=== PATIENT | male | born 1940 | race Caucasian/White ===

== ENCOUNTER → 2017-02-11 | Outpatient (CLI) | payer MEDICARE, OTHER ==
[~2017-02-11] MED LIST: FLOM5CAP PO; LANS30CA PO; MECL-68 PO; MELO7.5T7 PO; METF500T13 PO; ROSU10TA2 PO; TRAZ50TA11 PO; VALS1TAB46 PO
--- NOTE | 2017-02-11 10:29 | REP ---
Clinical: Primary Hypertension . Comparison: 11/28/2015 . Technique: PA and lateral. Findings: The mediastinum and cardiac silhouette are normal. The lung childress are clear and without acute consolidation, effusion, or pneumothorax. The skeletal structures are intact and normal. Impression: 1. No acute cardiopulmonary process. Signed by Adalberto Jacob MD 02/11/2017 10:20 A
[2017-02-11 10:44] LABS: MEAN CORPUSCULAR HEMOGLOBIN 34.3 pg (27.0-33.0); MEAN CORPUSCULAR HGB CONC 34.8 g/dl (32.0-36.5); MEAN CORPUSCULAR VOLUME 98.7 fl (80.0-96.0); RED CELL DISTRIBUTION WIDTH 12.8 % (11.5-14.5); WHITE BLOOD COUNT 6.6 K/mm3 (4.0-10.0)
[2017-02-11 11:21] LABS: ALBUMIN 3.8 GM/DL (3.2-5.2); ALBUMIN/GLOBULIN RATIO 1.19 (1.00-1.93); ALKALINE PHOSPHATASE 80 U/L (45-117); ALT/SGPT 28 U/L (12-78); ANION GAP 6 MEQ/L (8-16); AST/SGOT 19 U/L (15-37); BILIRUBIN,TOTAL 0.8 MG/DL (0.2-1.0); BLOOD UREA NITROGEN 20 MG/DL (7-18); CALCIUM LEVEL 8.9 MG/DL (8.8-10.2); CARBON DIOXIDE LEVEL 30 MEQ/L (21-32); CHLORIDE LEVEL 105 MEQ/L (98-107); CHOLESTEROL LEVEL 144 MG/DL (<200); CREATININE FOR GFR 0.96 MG/DL (0.70-1.30); GLOMERULAR FILTRATION RATE > 60.0 (>42); GLUCOSE, FASTING 163 MG/DL (83-110); SODIUM LEVEL 141 MEQ/L (136-145); TRIGLYCERIDES LEVEL 125 MG/DL (<150)
--- NOTE | 2017-02-11 12:01 | ECGEPIP ---
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
== END ==
LOC: M LAB 09:35
PROVIDERS: ATTEND Family Medicine
DX: E11.9 Type 2 diabetes mellitus without complications (principal); I10 Essential (primary) hypertension; R94.31 Abnormal electrocardiogram [ECG] [EKG]

== ENCOUNTER 2017-03-11 10:50 | Outpatient (CLI) | payer MEDICARE, OTHER ==
[~2017-03-11] VITALS: Ht 172.7 cm; Wt 98.0 kg
[~2017-03-11 10:50] MED LIST changes: +NS 1,000 ML IV ONE; +PROPOFOL 200 MG/20 ML VIAL As Ordered ONE
--- NOTE | 2017-03-11 12:21 | ROOR ---
Patient Name: Bryant Jenkins Procedure Date: 03/11/2017 11:51 AM Date of : 1940 Age: 76 Room[facility] Gender: Male Note Status: Finalized Procedure: Total Colonoscopy to Cecum + Cold Snare Polypectomy + Biopsies Indications: Screening for colorectal malignant neoplasm, Last colonoscopy: 2007 Providers: Geovany Bryant MD Referring MD: SHI MEDINA MD Requesting Provider: Medicines: Monitored Anesthesia Care Complications: No immediate complications. Procedure: Pre-Anesthesia Assessment: - The heart rate, respiratory rate, oxygen saturations, blood pressure, adequacy of pulmonary ventilation, and response to care were monitored throughout the procedure. The Colonoscope was introduced through the anus and advanced to the cecum, identified by appendiceal orifice and ileocecal valve. The colonoscopy was performed without difficulty. The patient tolerated the procedure well. The quality of the bowel preparation was excellent. Findings: The perianal and digital rectal examinations were normal. Non-bleeding internal hemorrhoids were found during retroflexion. The hemorrhoids were small and Grade I (internal hemorrhoids that do not prolapse). Scattered small and large-mouthed diverticula were found in the recto-sigmoid colon, sigmoid colon and descending colon. A medium polyp was found in the mid ascending colon. The polyp was sessile. The polyp was removed with a cold snare. Resection and retrieval were complete. A localized area of mildly erythematous mucosa was found appendiceal orifice. Biopsies were taken with a cold forceps for histology. The exam was otherwise without abnormality on direct and retroflexion views. Impression: - Non-bleeding internal hemorrhoids. - Diverticulosis in the recto-sigmoid colon, in the sigmoid colon and in the descending colon. - One medium polyp in the mid ascending colon, removed with a cold snare. Resected and retrieved. - Erythematous mucosa at the appendiceal orifice. Biopsied. - The examination was otherwise normal on direct and retroflexion views. - The exam was otherwise normal to the cecum. Recommendation: - Patient has a contact number available for emergencies. The signs and symptoms of potential delayed complications were discussed with the patient. Return to normal activities tomorrow. Written discharge instructions were provided to the patient. - High fiber diet. - Discharge patient to home. - Continue present medications. - Await pathology results. - Telephone GI clinic for pathology results in 1 week. - Repeat colonoscopy for symptoms only. - Check Portal Online for Path Results.([email or web address] - The findings and recommendations were discussed with the patient's family. Geovany Bryant MD Geovany Bryant MD 03/11/2017 12:21:14 PM This report has been signed electronically. Number of Addenda: 0 Note Initiated On: 03/11/2017 11:51 AM Estimated Blood Loss: Estimated blood loss: none.
[2017-03-11 12:23] VITALS: BP 102/65
== END 2017-03-11 12:50 | disposition home or self-care (01) ==
LOC: M OPP 10:50
PROVIDERS: ATTEND Internal Medicine Gastroenterology
DX: Z12.11 Encounter for screening for malignant neoplasm of colon (principal); K64.0 First degree hemorrhoids; K57.30 Diverticulosis of large intestine without perforation or abscess without bleeding; D12.2 Benign neoplasm of ascending colon; K63.89 Other specified diseases of intestine; I10 Essential (primary) hypertension; E78.00 Pure hypercholesterolemia, unspecified; E11.9 Type 2 diabetes mellitus without complications; K21.9 Gastro-esophageal reflux disease without esophagitis; R06.83 Snoring; N40.0 Benign prostatic hyperplasia without lower urinary tract symptoms; Z87.891 Personal history of nicotine dependence; Z79.899 Other long term (current) drug therapy; Z79.84 Long term (current) use of oral hypoglycemic drugs

== ENCOUNTER → 2017-04-20 | Outpatient (REF) | payer MEDICARE, OTHER ==
[~2017-04-20] MED LIST changes: -NS 1,000 ML IV ONE; -PROPOFOL 200 MG/20 ML VIAL As Ordered ONE
[2017-04-22 00:06] LABS: Lyme Disease IgG/IgM Antibodie <0.91 ISR (0.00-0.90); Lyme Disease IgM Ab Quantitati <0.80 index (0.00-0.79)
== END ==
LOC: M LABDRWAD 12:13
PROVIDERS: ATTEND Physician Assistant
DX: S80.861D Insect bite (nonvenomous), right lower leg, subsequent encounter (principal); X58.XXXD Exposure to other specified factors, subsequent encounter; Y92.89 Other specified places as the place of occurrence of the external cause; Y93.89 Activity, other specified; Y99.8 Other external cause status

== ENCOUNTER → 2017-12-16 | Outpatient (CLI) | payer MEDICARE, OTHER ==
[2017-12-16 09:31] LABS: HEMATOCRIT 43.8 % (42.0-52.0); HEMOGLOBIN 14.9 g/dl (13.5-17.5); MEAN CORPUSCULAR HEMOGLOBIN 32.8 pg (27.0-33.0); MEAN CORPUSCULAR VOLUME 96.5 fl (80.0-96.0); PLATELET COUNT, AUTOMATED 219 10^3/uL (150-450); RED BLOOD COUNT 4.54 10^6/uL (4.30-6.10); RED CELL DISTRIBUTION WIDTH 13.8 % (11.5-14.5); WHITE BLOOD COUNT 7.1 10^3/uL (4.0-10.0)
[2017-12-16 09:41] LABS: PROTHROMBIN TIME 13.3 SECONDS (12.4-14.5)
[2017-12-16 10:13] LABS: ALBUMIN 3.8 GM/DL (3.2-5.2); ALBUMIN/GLOBULIN RATIO 1.27 (1.00-1.93); ALKALINE PHOSPHATASE 75 U/L (45-117); ALT/SGPT 27 U/L (12-78); ANION GAP 5 MEQ/L (8-16); AST/SGOT 15 U/L (7-37); BILIRUBIN,TOTAL 0.6 MG/DL (0.2-1.0); BLOOD UREA NITROGEN 20 MG/DL (7-18); CALCIUM LEVEL 8.5 MG/DL (8.8-10.2); CARBON DIOXIDE LEVEL 29 MEQ/L (21-32); CHLORIDE LEVEL 108 MEQ/L (98-107); CHOLESTEROL LEVEL 125 MG/DL (<200); CHOLESTEROL RISK RATIO 3.289 (<5); CREATININE FOR GFR 0.92 MG/DL (0.70-1.30); GLOMERULAR FILTRATION RATE > 60.0 (>42); GLUCOSE, FASTING 155 MG/DL (70-100); HDL CHOLESTEROL 38 MG/DL (>40); LDL CHOLESTEROL 72.6 MG/DL (<100); NON-HDL-C 87 MG/DL; POTASSIUM SERUM 4.4 MEQ/L (3.5-5.1); PROSTATIC SPECIFIC AG MONITOR 1.21 NG/ML (< 4.0); SODIUM LEVEL 142 MEQ/L (136-145); TOTAL PROTEIN 6.8 GM/DL (6.4-8.2); TRIGLYCERIDES LEVEL 72 MG/DL (<150)
[2017-12-16 10:53] LABS: ESTIMATED AVERAGE GLUCOSE 174 MG/DL (60-110); HEMOGLOBIN A1c 7.7 %
== END ==
LOC: M LAB 08:49
DX: I10 Essential (primary) hypertension (principal); E03.9 Hypothyroidism, unspecified; N40.0 Benign prostatic hyperplasia without lower urinary tract symptoms; R53.83 Other fatigue
CPT/HCPCS: 71046

== ENCOUNTER → 2018-10-28 | Outpatient (CLI) | payer MEDICARE, OTHER ==
[~2018-10-28] MED LIST changes: +FLOM0.4C39 PO; -FLOM5CAP PO; -ROSU10TA2 PO; +ROSU10TA5 PO; +TRAZ-160 PO; -TRAZ50TA11 PO
[2018-10-28 09:38] LABS: HEMATOCRIT 46.5 % (42.0-52.0); HEMOGLOBIN 15.9 g/dl (13.5-17.5); MEAN CORPUSCULAR HEMOGLOBIN 32.6 pg (27.0-33.0); MEAN CORPUSCULAR HGB CONC 34.2 g/dl (32.0-36.5); MEAN CORPUSCULAR VOLUME 95.5 fl (80.0-96.0); PLATELET COUNT, AUTOMATED 221 10^3/uL (150-450); RED BLOOD COUNT 4.87 10^6/uL (4.30-6.10); WHITE BLOOD COUNT 7.4 10^3/uL (4.0-10.0)
--- NOTE | 2018-10-28 10:07 | REP ---
CHEST, TWO VIEWS: COMPARISON: 12/16/2017 There is no evidence of acute infiltrate or pulmonary edema. The lungs are clear. The heart is normal size. There is calcification of the thoracic aorta. The mediastinal silhouette is unchanged. There are old healed left rib fractures again noted. There are degenerative changes of the spine. IMPRESSION: No active pulmonary disease. Electronically Signed by Yovany Ramon MD 10/28/2018 04:00 P
--- NOTE | 2018-10-28 10:09 | REP ---
LUMBOSACRAL SPINE: Five views of the lumbosacral spine are performed. There is no fracture or dislocation. There is normal lumbar lordosis. There is no spondylolysis or spondylolisthesis. There is moderate diffuse spurring. There is mild disc space narrowing and subchondral sclerosis at all levels except for a moderate degree of disc space narrowing and subchondral sclerosis with a vacuum at L4-5. There is sclerosis and spurring of the posterior facet joints, particularly at L4-5, L5-S1. The posterior elements are intact. There is slight curvature toward the left. IMPRESSION: Moderate degenerative changes as above. Electronically Signed by Yovany Ramon MD 10/28/2018 04:01 P
[2018-10-28 10:10] LABS: ALBUMIN 3.8 GM/DL (3.2-5.2); ALT/SGPT 26 U/L (12-78); BILIRUBIN,TOTAL 0.9 MG/DL (0.2-1.0); BLOOD UREA NITROGEN 19 MG/DL (7-18); CALCIUM LEVEL 8.6 MG/DL (8.8-10.2); CARBON DIOXIDE LEVEL 28 MEQ/L (21-32); CHLORIDE LEVEL 105 MEQ/L (98-107); CHOLESTEROL LEVEL 144 MG/DL (<200); CHOLESTEROL RISK RATIO 4.114 (<5); CREATININE FOR GFR 1.08 MG/DL (0.70-1.30); GLOMERULAR FILTRATION RATE > 60.0 (>42); GLUCOSE, FASTING 167 MG/DL (70-100); HDL CHOLESTEROL 35 MG/DL (>40); LDL CHOLESTEROL 89 MG/DL (<100); NON-HDL-C 109 MG/DL; POTASSIUM SERUM 4.2 MEQ/L (3.5-5.1); PROSTATIC SPECIFIC AG MONITOR 0.79 NG/ML (< 4.00); SODIUM LEVEL 140 MEQ/L (136-145); TOTAL PROTEIN 6.8 GM/DL (6.4-8.2); TRIGLYCERIDES LEVEL 102 MG/DL (<150)
[2018-10-28 11:20] LABS: HEMOGLOBIN A1c 8.3 %
--- NOTE | 2018-10-29 23:58 | ECGEPIP ---
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
== END ==
LOC: M LAB 08:47
PROVIDERS: ATTEND Family Medicine
DX: I10 Essential (primary) hypertension (principal); E11.9 Type 2 diabetes mellitus without complications; M54.30 Sciatica, unspecified side; M51.37 Other intervertebral disc degeneration, lumbosacral region

== ENCOUNTER → 2019-01-06 | Outpatient (CLI) | payer MEDICARE, OTHER ==
[~2019-01-06] MED LIST changes: -TRAZ-160 PO; +TRAZ-252 PO; -VALS1TAB46 PO; +VALS1TAB66 PO
--- NOTE | 2019-01-06 15:07 | REP ---
LEFT SHOULDER, THREE VIEWS: HISTORY: Fall. There is no acute fracture or dislocation. There joint spaces are normal in appearance. Osteophytes are present at the acromioclavicular joint. There is an old fracture of the left 7th rib. IMPRESSION: There is no acute fracture or dislocation. Electronically Signed by Rafi Gomez MD 01/06/2019 03:27 P
--- NOTE | 2019-01-06 15:08 | REP ---
LEFT HUMERUS, TWO VIEWS: HISTORY: Fall. There is no acute fracture or dislocation. The joint spaces are normal in appearance. Osteophytes are present at the acromioclavicular joint. IMPRESSION: There is no acute fracture or dislocation. Electronically Signed by Rafi Gomez MD 01/06/2019 03:26 P
== END ==
LOC: M RAD 10:37
PROVIDERS: ATTEND Family Medicine
DX: M25.512 Pain in left shoulder (principal); W19.XXXA Unspecified fall, initial encounter; Y92.009 Unspecified place in unspecified non-institutional (private) residence as the place of occurrence of the external cause; Y93.9 Activity, unspecified

== ENCOUNTER → 2020-07-25 | Outpatient (CLI) | payer MEDICARE, OTHER ==
[~2020-07-25] MED LIST changes: -MECL-68 PO; +MECL1TAB31 PO; -ROSU10TA5 PO; +ROSU10TA6 PO
--- NOTE | 2020-07-25 10:28 | REP ---
INDICATION: RIGHT SHOULDER PAIN. COMPARISON: None. TECHNIQUE: There are three views. FINDINGS: There is mild acromioclavicular osteoarthritis. The glenohumeral joint is unremarkable. There are no calcifications. There is no fracture or dislocation. There is a subsequent cul cyst superolaterally in the humeral head. IMPRESSION: Acromioclavicular osteoarthritis. Humeral head subcortical cysts superolaterally. <Electronically signed by Yovany Rolle > 07/25/20 [id number]
== END ==
LOC: M RAD 09:23
PROVIDERS: ATTEND Family Medicine
DX: M19.011 Primary osteoarthritis, right shoulder (principal); M85.421 Solitary bone cyst, right humerus

== ENCOUNTER → 2020-08-29 | Outpatient (CLI) | payer MEDICARE, OTHER ==
--- NOTE | 2020-08-29 11:57 | REP ---
INDICATION: DDD, SCIATICA. COMPARISON: Comparison study October 28, 2018.. TECHNIQUE: Five views. FINDINGS: There are surgical clips in the right upper quadrant of the abdomen. There is a levoconvex curvature in the lumbar spine on the AP radiograph similar to the prior study. Psoas margins are symmetric. Sacrum and SI joints are intact. Lumbar vertebral body heights are preserved. Alignment is otherwise normal. There is degenerative disc narrowing and osteophyte formation with endplate sclerosis at L4-5. Less prominent degenerative disc changes are noted at L3-4 and L2-3. Discogenic spurring is seen at each visualized level to some degree. Vascular calcification is noted in a normal caliber aorta. There is osteoarthritic facet sclerosis and hypertrophy bilaterally at L5-S1, L4-5, and L3-4. This is more pronounced on the right than the left. Degenerative spondylosis changes are stable when compared with the prior study. IMPRESSION: Degenerative disc and osteoarthritic facet disease. Scoliosis. Findings felt to be unchanged from October 28, 2018. No acute abnormality. <Electronically signed by Ayan Rice > 08/29/20 [id number]
== END ==
LOC: M RAD 10:50
PROVIDERS: ATTEND Family Medicine
DX: M54.30 Sciatica, unspecified side (principal); M25.78 Osteophyte, vertebrae; M51.36 Other intervertebral disc degeneration, lumbar region; M51.37 Other intervertebral disc degeneration, lumbosacral region

== ENCOUNTER → 2021-04-10 | Outpatient (CLI) | payer MEDICARE, OTHER ==
[2021-04-10 09:55] LABS: HEMATOCRIT 39.9 % (42.0-52.0); HEMOGLOBIN 13.6 g/dl (13.5-17.5); MEAN CORPUSCULAR HEMOGLOBIN 33.4 pg (27.0-33.0); MEAN CORPUSCULAR HGB CONC 34.1 g/dl (32.0-36.5); PLATELET COUNT, AUTOMATED 189 10^3/uL (150-450); RED BLOOD COUNT 4.07 10^6/uL (4.30-6.10); WHITE BLOOD COUNT 5.4 10^3/uL (4.0-10.0)
[2021-04-10 10:07] LABS: INR 1.09; PROTHROMBIN TIME 14.5 SECONDS (12.7-14.5)
[2021-04-10 10:19] LABS: ALBUMIN 3.6 GM/DL (3.2-5.2); ALT/SGPT 35 U/L (12-78); BILIRUBIN,TOTAL 0.6 MG/DL (0.2-1.0); BLOOD UREA NITROGEN 21 MG/DL (7-18); CALCIUM LEVEL 9.1 MG/DL (8.8-10.2); CARBON DIOXIDE LEVEL 27 MEQ/L (21-32); CHLORIDE LEVEL 110 MEQ/L (98-107); CREATININE FOR GFR 0.82 MG/DL (0.70-1.30); GLOMERULAR FILTRATION RATE > 60.0 (>35); GLUCOSE, FASTING 106 MG/DL (70-100); POTASSIUM SERUM 4.3 MEQ/L (3.5-5.1); SODIUM LEVEL 141 MEQ/L (136-145); TOTAL PROTEIN 6.6 GM/DL (6.4-8.2)
[2021-04-10 10:33] LABS: ERYTHROCYTE SEDIMENTATION RATE 10 mm/hr (0-20)
--- NOTE | 2021-04-10 17:53 | REP ---
INDICATION: LEFT HIP OSTEOARTHRITIS/LAB FIRST-EKG 2ND-XRAY 3RD COMPARISON: 10/28/2018. TECHNIQUE: PA/Lateral FINDINGS: Lungs: Clear, no infiltrate. Heart: Normal in size. Mediastinum: Mediastinal silhouette unremarkable. There is atherosclerotic plaquing of the thoracic aorta. Pleural angles: Unremarkable.. Bones and soft tissues: There are old healed left rib fractures again noted. There are degenerative changes of the spine. IMPRESSION: No acute pulmonary disease. <Electronically signed by Yovany Ramon > 04/10/21 [id number]
--- NOTE | 2021-04-11 07:47 | ECGEPIP ---
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
== END ==
LOC: M LAB 09:10
PROVIDERS: ATTEND Orthopaedic Surgery
DX: M16.12 Unilateral primary osteoarthritis, left hip (principal)

== ENCOUNTER → 2021-05-02 | Outpatient (CLI) | payer MEDICARE, OTHER ==
[2021-05-02 13:26] LABS: HEMATOCRIT 35.1 % (42.0-52.0); MEAN CORPUSCULAR HEMOGLOBIN 33.1 pg (27.0-33.0); MEAN CORPUSCULAR HGB CONC 34.2 g/dl (32.0-36.5); PLATELET COUNT, AUTOMATED 287 10^3/uL (150-450); RED BLOOD COUNT 3.62 10^6/uL (4.30-6.10); WHITE BLOOD COUNT 5.3 10^3/uL (4.0-10.0)
[2021-05-02 13:38] LABS: INR 1.58; PROTHROMBIN TIME 19.3 SECONDS (12.7-14.5)
[2021-05-02 14:06] LABS: ALBUMIN 3.1 GM/DL (3.2-5.2); ALT/SGPT 37 U/L (12-78); BILIRUBIN,TOTAL 0.5 MG/DL (0.2-1.0); BLOOD UREA NITROGEN 20 MG/DL (7-18); CALCIUM LEVEL 8.9 MG/DL (8.8-10.2); CARBON DIOXIDE LEVEL 27 MEQ/L (21-32); CHLORIDE LEVEL 103 MEQ/L (98-107); CREATININE FOR GFR 0.82 MG/DL (0.70-1.30); GLOMERULAR FILTRATION RATE > 60.0 (>35); GLUCOSE, FASTING 133 MG/DL (70-100); POTASSIUM SERUM 4.8 MEQ/L (3.5-5.1); PROSTATIC SPECIFIC AG MONITOR 1.22 NG/ML (< 4.00); SODIUM LEVEL 138 MEQ/L (136-145); TESTOSTERONE 140 NG/DL (241-827); TOTAL PROTEIN 6.2 GM/DL (6.4-8.2)
== END ==
LOC: M LAB 12:10
PROVIDERS: ATTEND Family Medicine
DX: I10 Essential (primary) hypertension (principal); R53.83 Other fatigue; D64.9 Anemia, unspecified; Z79.899 Other long term (current) drug therapy

== ENCOUNTER → 2021-11-12 | Outpatient (CLI) | payer MEDICARE, OTHER ==
[2021-11-12 13:03] LABS: PLATELET COUNT, AUTOMATED 243 10^3/uL (150-450)
[2021-11-12 13:08] LABS: INR 1.01; PROTHROMBIN TIME 13.7 SECONDS (12.7-14.5)
[2021-11-12 13:09] LABS: PARTIAL THROMBOPLASTIN TIME 30.7 SECONDS (25.9-37.0)
== END ==
LOC: M LAB 11:24
PROVIDERS: ATTEND Physician Assistant Surgical
DX: M51.37 Other intervertebral disc degeneration, lumbosacral region (principal)

== ENCOUNTER → 2021-12-17 | Outpatient (CLI) | payer MEDICARE, OTHER ==
[2021-12-17 10:23] LABS: HEMATOCRIT 42.3 % (42.0-52.0); HEMOGLOBIN 14.3 g/dl (13.5-17.5); MEAN CORPUSCULAR HEMOGLOBIN 33.7 pg (27.0-33.0); MEAN CORPUSCULAR HGB CONC 33.8 g/dl (32.0-36.5); MEAN CORPUSCULAR VOLUME 99.8 fl (80.0-96.0); PLATELET COUNT, AUTOMATED 234 10^3/uL (150-450); RED BLOOD COUNT 4.24 10^6/uL (4.30-6.10); WHITE BLOOD COUNT 7.6 10^3/uL (4.0-10.0)
[2021-12-17 11:06] LABS: ALBUMIN 3.9 GM/DL (3.2-5.2); ALT/SGPT 18 U/L (12-78); BILIRUBIN,TOTAL 0.7 MG/DL (0.2-1.0); BLOOD UREA NITROGEN 21 MG/DL (7-18); CALCIUM LEVEL 9.4 MG/DL (8.8-10.2); CARBON DIOXIDE LEVEL 27 MEQ/L (21-32); CHLORIDE LEVEL 109 MEQ/L (98-107); CHOLESTEROL LEVEL 155 MG/DL (<200); CHOLESTEROL RISK RATIO 4.558 (<5); CREATININE FOR GFR 1.06 MG/DL (0.70-1.30); GLOMERULAR FILTRATION RATE > 60.0 (>35); GLUCOSE, FASTING 170 MG/DL (70-100); HDL CHOLESTEROL 34 MG/DL (>40); LDL CHOLESTEROL 91 MG/DL (<100); NON-HDL-C 121 MG/DL; POTASSIUM SERUM 5.7 MEQ/L (3.5-5.1); PROSTATIC SPECIFIC AG MONITOR 1.21 NG/ML (< 4.00); SODIUM LEVEL 140 MEQ/L (136-145); TOTAL PROTEIN 7.3 GM/DL (6.4-8.2); TRIGLYCERIDES LEVEL 150 MG/DL (<150)
[2021-12-17 11:39] LABS: HEMOGLOBIN A1c 6.7 %
== END ==
LOC: M LAB 09:05
PROVIDERS: ATTEND Family Medicine
DX: R53.83 Other fatigue (principal); I10 Essential (primary) hypertension; Z79.899 Other long term (current) drug therapy

== ENCOUNTER → 2022-06-18 | Outpatient (CLI) | payer MEDICARE, OTHER ==
[2022-06-18 10:02] LABS: HEMATOCRIT 42.5 % (42.0-52.0); HEMOGLOBIN 14.4 g/dl (13.5-17.5); MEAN CORPUSCULAR HEMOGLOBIN 33.6 pg (27.0-33.0); MEAN CORPUSCULAR HGB CONC 33.9 g/dl (32.0-36.5); MEAN CORPUSCULAR VOLUME 99.1 fl (80.0-96.0); PLATELET COUNT, AUTOMATED 231 10^3/uL (150-450); RED BLOOD COUNT 4.29 10^6/uL (4.30-6.10); WHITE BLOOD COUNT 6.9 10^3/uL (4.0-10.0)
[2022-06-18 10:28] LABS: HEMOGLOBIN A1c 6.7 %
[2022-06-18 10:51] LABS: ALBUMIN 3.9 GM/DL (3.2-5.2); ALT/SGPT 25 U/L (12-78); BILIRUBIN,TOTAL 0.7 MG/DL (0.2-1.0); BLOOD UREA NITROGEN 19 MG/DL (7-18); CALCIUM LEVEL 8.8 MG/DL (8.8-10.2); CARBON DIOXIDE LEVEL 28 MEQ/L (21-32); CHLORIDE LEVEL 105 MEQ/L (98-107); CHOLESTEROL LEVEL 130 MG/DL (<200); CHOLESTEROL RISK RATIO 3.333 (<5); CREATININE FOR GFR 1.01 MG/DL (0.70-1.30); GLOMERULAR FILTRATION RATE > 60.0 (>35); GLUCOSE, FASTING 128 MG/DL (70-100); HDL CHOLESTEROL 39 MG/DL (>40); LDL CHOLESTEROL 71 MG/DL (<100); NON-HDL-C 91 MG/DL; POTASSIUM SERUM 4.7 MEQ/L (3.5-5.1); PROSTATIC SPECIFIC AG MONITOR 1.06 NG/ML (< 4.00); SODIUM LEVEL 141 MEQ/L (136-145); TOTAL PROTEIN 6.9 GM/DL (6.4-8.2); TRIGLYCERIDES LEVEL 102 MG/DL (<150)
[2022-06-18 12:10] LABS: TESTOSTERONE 273 NG/DL (241-827)
== END ==
LOC: M LAB 09:21
PROVIDERS: ATTEND Family Medicine
DX: R53.83 Other fatigue (principal); I10 Essential (primary) hypertension; E03.9 Hypothyroidism, unspecified; Z79.899 Other long term (current) drug therapy

== ENCOUNTER → 2022-10-02 | Outpatient (CLI) | payer MEDICARE, OTHER ==
[2022-10-02 11:12] LABS: HEMATOCRIT 42.5 % (42.0-52.0); HEMOGLOBIN 14.2 g/dl (13.5-17.5); MEAN CORPUSCULAR HEMOGLOBIN 33.4 pg (27.0-33.0); MEAN CORPUSCULAR HGB CONC 33.4 g/dl (32.0-36.5); PLATELET COUNT, AUTOMATED 218 10^3/uL (150-450); RED BLOOD COUNT 4.25 10^6/uL (4.30-6.10); WHITE BLOOD COUNT 7.4 10^3/uL (4.0-10.0)
[2022-10-02 11:30] LABS: HEMOGLOBIN A1c 7.4 % (4.0-6.0)
[2022-10-02 11:45] LABS: PROSTATIC SPECIFIC AG MONITOR 0.71 NG/ML (< 4.00)
[2022-10-02 11:47] LABS: ALKALINE PHOSPHATASE 69 U/L (46-116); ALT/SGPT 20 U/L (7.0-40); AST/SGOT 17 U/L (<34); BILIRUBIN,TOTAL 0.6 MG/DL (0.3-1.2); BLOOD UREA NITROGEN 22 MG/DL (9-23); CALCIUM LEVEL 9.6 MG/DL (8.3-10.6); CARBON DIOXIDE LEVEL 29 MMOL/L (20-31); CHLORIDE LEVEL 106 MMOL/L (98-107); CHOLESTEROL LEVEL 140 MG/DL (<200); CHOLESTEROL RISK RATIO 3.53 (<5); CREATININE FOR GFR 0.92 MG/DL (0.70-1.30); GLOMERULAR FILTRATION RATE > 60.0 (>35); GLUCOSE, FASTING 189 MG/DL (74-106); HDL CHOLESTEROL 39.6 MG/DL (>40); LDL CHOLESTEROL 80.2 MG/DL (<100); NON-HDL-C 100 MG/DL; POTASSIUM SERUM 5.1 MMOL/L (3.5-5.1); SODIUM LEVEL 139 MMOL/L (136-145); TOTAL PROTEIN 6.7 G/DL (5.7-8.2); TRIGLYCERIDES LEVEL 101 MG/DL (<150)
[2022-10-02 11:49] LABS: THYROID STIMULATING HORMONE 1.818 uIU/ML (0.55-4.78)
== END ==
LOC: M LAB 10:13
PROVIDERS: ATTEND Family Medicine
DX: D64.9 Anemia, unspecified (principal); R53.83 Other fatigue; I10 Essential (primary) hypertension; R97.20 Elevated prostate specific antigen [PSA]

== ENCOUNTER → 2023-03-31 | Outpatient (CLI) | payer MEDICARE, OTHER ==
[2023-03-31 10:31] LABS: HEMATOCRIT 41.1 % (42.0-52.0); HEMOGLOBIN 13.8 g/dl (13.5-17.5); MEAN CORPUSCULAR HEMOGLOBIN 33.5 pg (27.0-33.0); MEAN CORPUSCULAR HGB CONC 33.6 g/dl (32.0-36.5); MEAN CORPUSCULAR VOLUME 99.8 fl (80.0-96.0); PLATELET COUNT, AUTOMATED 218 10^3/uL (150-450); RED BLOOD COUNT 4.12 10^6/uL (4.30-6.10); WHITE BLOOD COUNT 6.5 10^3/uL (4.0-10.0)
[2023-03-31 10:47] LABS: HEMOGLOBIN A1c 6.9 % (4.0-6.0)
[2023-03-31 11:01] LABS: ALBUMIN 3.8 G/DL (3.2-5.2); ALKALINE PHOSPHATASE 66 U/L (46-116); ALT/SGPT 13 U/L (7.0-40); AST/SGOT 19 U/L (<34); BILIRUBIN,TOTAL 0.9 MG/DL (0.3-1.2); BLOOD UREA NITROGEN 20 MG/DL (9-23); CALCIUM LEVEL 8.8 MG/DL (8.3-10.6); CARBON DIOXIDE LEVEL 29 MMOL/L (20-31); CHLORIDE LEVEL 104 MMOL/L (98-107); CHOLESTEROL LEVEL 126 MG/DL (<200); CHOLESTEROL RISK RATIO 3.61 (<5); CREATININE FOR GFR 0.92 MG/DL (0.70-1.30); GLOMERULAR FILTRATION RATE > 60.0 (>35); GLUCOSE, FASTING 184 MG/DL (74-106); HDL CHOLESTEROL 34.9 MG/DL (>40); LDL CHOLESTEROL 72.5 MG/DL (<100); NON-HDL-C 91.1 MG/DL; POTASSIUM SERUM 4.9 MMOL/L (3.5-5.1); PROSTATIC SPECIFIC AG MONITOR 0.69 NG/ML (< 4.00); SODIUM LEVEL 141 MMOL/L (136-145); TESTOSTERONE 270 NG/DL (241-827); THYROID STIMULATING HORMONE 1.595 uIU/ML (0.55-4.78); TOTAL PROTEIN 6.5 G/DL (5.7-8.2); TRIGLYCERIDES LEVEL 93 MG/DL (<150)
== END ==
LOC: M LAB 09:44
PROVIDERS: ATTEND Family Medicine
DX: I10 Essential (primary) hypertension (principal); R53.83 Other fatigue; E03.9 Hypothyroidism, unspecified

== ENCOUNTER → 2023-11-25 | Outpatient (CLI) | payer MEDICARE, OTHER ==
[~2023-11-25] MED LIST changes: +LIQUID POLIBAR PLUS 105% w/v 750ML BTL As Ordered ONE; +MECL-209 PO; -MECL1TAB31 PO
== END ==
LOC: M RAD 08:09
PROVIDERS: ATTEND Family Medicine
DX: R19.4 Change in bowel habit (principal)

== ENCOUNTER → 2024-01-29 | Outpatient (CLI) | payer MEDICARE, OTHER ==
[~2024-01-29] MED LIST changes: -LIQUID POLIBAR PLUS 105% w/v 750ML BTL As Ordered ONE; -ROSU10TA6 PO; +ROSU10TA61 PO
== END ==
LOC: M RAD 11:14
PROVIDERS: ATTEND Family Medicine
DX: J44.9 Chronic obstructive pulmonary disease, unspecified (principal)

== ENCOUNTER 2024-02-15 12:10 | Inpatient (IN) | payer MEDICARE, OTHER ==
[~2024-02-15] VITALS: Ht 172.7 cm; Wt 89.6 kg
[2024-02-15] MEDS ORDERED: ASPI81CH33 PO (12:24)
[2024-02-15] MEDS ORDERED: CARB25TA9 PO (12:24)
[2024-02-15] MEDS ORDERED: DOXA1TAB41 PO (12:24)
[2024-02-15] MEDS ORDERED: SENN-193 PO (12:25)
[2024-02-15] MEDS: NS 500 ML IV ONE ×2 (13:23→15:12)
[2024-02-15 13:33] LABS: BASO % 0.2 % (0.0-1.0); EOS % 0.2 % (0.0-3.0); HEMOGLOBIN 13.5 g/dl (13.5-17.5); LYMPH # 0.4 10^3/uL (1.5-5.0); LYMPH % 3.3 % (24.0-44.0); MEAN CORPUSCULAR HEMOGLOBIN 32.9 pg (27.0-33.0); MEAN CORPUSCULAR HGB CONC 33.8 g/dl (32.0-36.5); MEAN CORPUSCULAR VOLUME 97.6 fl (80.0-96.0); MONO # 0.3 10^3/uL (0.0-0.8); MONO % 2.3 % (2.0-8.0); NEUTROPHILS # 11.2 10^3/uL (1.5-8.5); NEUTROPHILS % 93.6 % (36.0-66.0); WHITE BLOOD COUNT 11.9 10^3/uL (4.0-10.0)
[2024-02-15 13:44] LABS: INR 1.46; PROTHROMBIN TIME 17.3 SECONDS (12.5-14.5)
[2024-02-15 13:46] LABS: PLATELET COUNT, AUTOMATED 86 10^3/uL (150-450)
[2024-02-15 14:01] LABS: LIPASE 22 U/L (12-53)
[2024-02-15 14:03] LABS: ALBUMIN 3.5 G/DL (3.2-5.2); ALKALINE PHOSPHATASE 90 U/L (46-116); ALT/SGPT < 9 U/L (7.0-40); AST/SGOT 33 U/L (<34); BILIRUBIN,DIRECT 0.4 MG/DL (<0.4); BILIRUBIN,TOTAL 0.8 MG/DL (0.3-1.2); BLOOD UREA NITROGEN 76 MG/DL (9-23); CALCIUM LEVEL 9.5 MG/DL (8.3-10.6); CARBON DIOXIDE LEVEL 20 MMOL/L (20-31); CHLORIDE LEVEL 99 MMOL/L (98-107); CK-MB VALUE MASS 2.9 NG/ML (<3.6); GLOMERULAR FILTRATION RATE 19.8 (>35); GLUCOSE, FASTING 150 MG/DL (74-106); SODIUM LEVEL 128 MMOL/L (136-145); TOTAL PROTEIN 6.1 G/DL (5.7-8.2)
[2024-02-15 14:04] LABS: THYROID STIMULATING HORMONE 7.024 uIU/ML (0.55-4.78)
[2024-02-15 14:05] LABS: FREE T4 1.21 NG/DL (0.89-1.76)
[2024-02-15 14:06] LABS: CPK CREATINE PHOSPHOKINASE 50 U/L (46-171)
[2024-02-15] MEDS ORDERED: MECL-136 PO (14:50)
[2024-02-15] MEDS ORDERED: MELO7.5T35 PO (14:50)
[2024-02-15] MEDS ORDERED: LANS30CA93 PO (14:52)
[2024-02-15] MEDS ORDERED: OMEP40CA5 PO (14:53)
[2024-02-15] MEDS ORDERED: HOME MED LIST COMPLETE! XX SCH (15:00)
[2024-02-15] MEDS: HumuLIN R (REGULAR) INSULIN (NovoLIN R) **100U/ML** PER UNIT IV ONE (15:13)
[2024-02-15] MEDS: CALCIUM GLUCONATE 1,000 MG in D5W MINI-BAG PLUS 100 ML IV ONE (15:13)
[2024-02-15] MEDS: DEXTROSE 50% 50ML SYRINGE IV STA (15:14)
[2024-02-15 15:40] LABS: CK-MB VALUE MASS 2.5 NG/ML (<3.6)
[2024-02-15 15:41] LABS: MB/CK RELATIVE INDEX 5.43 (< OR =4)
[2024-02-15] MEDS: cefTRIAXone SOD 2 GM in D5W MINI-BAG PLUS 50 ML IV ONE (16:40)
[2024-02-15] MEDS: NS 1,000 ML IV SCH (16:40)
[2024-02-15] MEDS ORDERED: ACETAMINOPHEN TAB 650MG DOSE (2X325MG) PO PRN (17:15)
[2024-02-15] MEDS ORDERED: DEXTROSE 50% 50ML SYRINGE IV PRN (17:40)
[2024-02-15] MEDS ORDERED: GLUCOSE 4 GM CHEW PO PRN (17:40)
[2024-02-15] MEDS ORDERED: GLUCAGON INJ 1MG VIAL SC PRN (17:40)
[2024-02-15 18:42] LABS: BLOOD UREA NITROGEN 75 MG/DL (9-23); CALCIUM LEVEL 8.8 MG/DL (8.3-10.6); CARBON DIOXIDE LEVEL 21 MMOL/L (20-31); CHLORIDE LEVEL 101 MMOL/L (98-107); GLOMERULAR FILTRATION RATE 21.4 (>35); GLUCOSE, FASTING 146 MG/DL (74-106); POTASSIUM SERUM 5.4 MMOL/L (3.5-5.1); SODIUM LEVEL 130 MMOL/L (136-145)
[2024-02-15 18:43] LABS: CARCINOEMBRYONIC ANTIGEN < 2.0 NG/ML (<2.5); THYROID STIMULATING HORMONE 5.358 uIU/ML (0.55-4.78)
[2024-02-15 18:44] LABS: FREE T4 1.14 NG/DL (0.89-1.76)
[2024-02-15 18:55] LABS: PROCALCITONIN 0.63 ng/ml
[2024-02-15 18:59] LABS: CA19-9 TUMOR MARKER,CARBOHYDRA < 1.2 U/ML (<35.0)
[2024-02-15 19:01] LABS: HEPATITIS B SURFACE ANTIGEN NEGATIVE (NEGATIVE)
[2024-02-15 19:22] LABS: HEPATITIS C VIRUS ABY INDEX < 0.02 INDEX (<0.8)
[2024-02-15 19:23] LABS: HEPATITIS B CORE ANTIBODY IGM NEGATIVE (NEGATIVE); VITAMIN B12 LEVEL > 2000 PG/ML (211-911)
[2024-02-15] MEDS: INSULIN LISPRO (NovoLOG) PER UNIT SC SCH (21:00)
[2024-02-15] MEDS: MECLIZINE 12.5 MG TAB PO SCH (21:00)
[2024-02-15] MEDS: DOXAZOSIN MESYLATE 1 MG TAB PO SCH (21:00)
[2024-02-15] MEDS: SINEMET 25-100 MG TAB PO SCH (21:00)
[2024-02-15 21:20] VITALS: BP 105/62; TEMP 98.1; O2SAT 96
[2024-02-16] VITALS (12 sets, daily range): BP systolic 64–106; BP diastolic 42–66; TEMP 96.8–98.3; O2SAT 96–97
[2024-02-16 06:20] LABS: HEMATOCRIT 38.1 % (42.0-52.0); HEMOGLOBIN 12.8 g/dl (13.5-17.5); MEAN CORPUSCULAR HEMOGLOBIN 33.2 pg (27.0-33.0); MEAN CORPUSCULAR HGB CONC 33.6 g/dl (32.0-36.5); MEAN CORPUSCULAR VOLUME 98.7 fl (80.0-96.0); RED BLOOD COUNT 3.86 10^6/uL (4.30-6.10); WHITE BLOOD COUNT 13.6 10^3/uL (4.0-10.0)
[2024-02-16 06:48] LABS: ALBUMIN 2.9 G/DL (3.2-5.2); ALKALINE PHOSPHATASE 72 U/L (46-116); ALT/SGPT < 9 U/L (7.0-40); AST/SGOT 38 U/L (<34); BILIRUBIN,TOTAL 0.5 MG/DL (0.3-1.2); BLOOD UREA NITROGEN 73 MG/DL (9-23); CALCIUM LEVEL 8.9 MG/DL (8.3-10.6); CARBON DIOXIDE LEVEL 19 MMOL/L (20-31); CHLORIDE LEVEL 103 MMOL/L (98-107); CREATININE FOR GFR 2.97 MG/DL (0.70-1.30); GLOMERULAR FILTRATION RATE 21.6 (>35); GLUCOSE, FASTING 105 MG/DL (74-106); POTASSIUM SERUM 5.6 MMOL/L (3.5-5.1); SODIUM LEVEL 133 MMOL/L (136-145); TOTAL PROTEIN 5.1 G/DL (5.7-8.2)
[2024-02-16 06:49] LABS: PLATELET COUNT, AUTOMATED 84 10^3/uL (150-450)
[2024-02-16] MEDS: INSULIN LISPRO (NovoLOG) PER UNIT SC SCH (07:30)
[2024-02-16] MEDS: ASPIRIN 81MG CHEW TABLET PO SCH (09:11)
[2024-02-16] MEDS: PANTOPRAZOLE 40MG VIAL IV SCH (09:11)
[2024-02-16] MEDS: PATIROMER SORBITEX CALCIUM 8.4 GM POWDER PACKET (VELTASSA) PO ONE ×2 (09:11→18:05)
[2024-02-16] MEDS: TAMSULOSIN 0.4 MG CAP PO SCH (09:12)
[2024-02-16] MEDS: SENNA 8.6 MG TAB (SENOKOT) PO PRN (11:30)
[2024-02-16] MEDS: NS 1,000 ML IV ONE (11:50)
[2024-02-16] MEDS: NS 500 ML IV ONE (11:50)
[2024-02-16] MEDS ORDERED: MIDODRINE 5 MG TAB PO SCH ×2 (12:00→12:15)
[2024-02-16] MEDS ORDERED: MIDODRINE 2.5 MG TAB PO SCH ×3 (12:00→18:00)
[2024-02-16] MEDS: MIDODRINE 5 MG TAB PO SCH ×2 (12:17→20:22)
[2024-02-16] MEDS: SODIUM BICARBONATE 75 MEQ in NS 0.45% 1,000 ML IV SCH (14:23)
[2024-02-16 15:01] LABS: TOTAL PROTEIN,RANDOM URINE 85.9 MG/DL (0.0-14.0)
[2024-02-16 15:06] LABS: CREATININE,RANDOM URINE 194.1 MG/DL
[2024-02-16] MEDS: cefTRIAXone SOD 1 GM in D5W MINI-BAG PLUS 50 ML IV ONE (15:39)
[2024-02-16] MEDS: OCTREOTIDE ACETATE 100MCG/ML VIAL **SC ADMINISTRATION ONLY SC SCH (15:39)
[2024-02-16] MEDS: MIDODRINE 2.5 MG TAB PO SCH (15:42)
[2024-02-16 17:09] LABS: CREATININE FOR GFR 3.06 MG/DL (0.70-1.30); GLOMERULAR FILTRATION RATE 20.9 (>35); POTASSIUM SERUM 5.5 MMOL/L (3.5-5.1)
[2024-02-17] VITALS (31 sets, daily range): BP systolic 80–122; BP diastolic 48–63; TEMP 97.2–97.8; O2SAT 92–99
[2024-02-17 04:44] LABS: VENOUS BASE EXCESS -4.9 (-2.0-2.0); VENOUS HCO3 20.3 MMOL/L (23.0-27.0); VENOUS O2 SATURATION 91.1 % (60.0-80.0); VENOUS PARTIAL PRESSURE O2 64.2 mmHg (30.0-50.0); VENOUS PH 7.345 UNITS (7.330-7.430); VENOUS STANDARD HCO3 20.3 MMOL/L; VENOUS TOTAL CO2 21.4 MMOL/L (24.0-28.0)
[2024-02-17 04:51] LABS: BASO % 0.2 % (0.0-1.0); EOS # 0.1 10^3/uL (0.0-0.5); EOS % 0.4 % (0.0-3.0); HEMATOCRIT 37.1 % (42.0-52.0); HEMOGLOBIN 12.7 g/dl (13.5-17.5); LYMPH # 0.6 10^3/uL (1.5-5.0); LYMPH % 4.4 % (24.0-44.0); MEAN CORPUSCULAR HEMOGLOBIN 33.1 pg (27.0-33.0); MEAN CORPUSCULAR HGB CONC 34.2 g/dl (32.0-36.5); MEAN CORPUSCULAR VOLUME 96.6 fl (80.0-96.0); MONO # 0.5 10^3/uL (0.0-0.8); MONO % 3.9 % (2.0-8.0); NEUTROPHILS # 12.5 10^3/uL (1.5-8.5); NEUTROPHILS % 90.8 % (36.0-66.0); RED BLOOD COUNT 3.84 10^6/uL (4.30-6.10); WHITE BLOOD COUNT 13.7 10^3/uL (4.0-10.0)
[2024-02-17 04:53] LABS: PLATELET COUNT, AUTOMATED 95 10^3/uL (150-450)
[2024-02-17 05:14] LABS: CALCIUM LEVEL 8.9 MG/DL (8.3-10.6); CREATININE FOR GFR 2.92 MG/DL (0.70-1.30); GLOMERULAR FILTRATION RATE 22.1 (>35); POTASSIUM SERUM 5.2 MMOL/L (3.5-5.1)
[2024-02-17] MEDS: NICOTINE 21MG/24HR 1 EA TRANSDERMAL TD SCH (09:00)
[2024-02-17 16:16] LABS: APPEARANCE, BODY FLUID TURBID (CLEAR); ASCITES FL COLOR RED (COLORLESS); SOURCE, BODY FLUID ASCITES
[2024-02-17] MEDS: MIDODRINE 5 MG TAB PO ONE (16:39)
[2024-02-17 16:53] LABS: SOURCE, BODY FLUID ALBUMIN ASCITES
[2024-02-17 17:01] LABS: SOURCE, BODY FLUID TOT PROTEIN ASCITES; TOTAL PROTEIN, BODY FLUID 2.3 G/DL (NOT ESTABLISHED)
[2024-02-17] MEDS ORDERED: HEPARIN SOD (PORCINE) 5000UNITS/ML 1ML VIAL/SYRINGE SQ SCH (17:50)
[2024-02-17] MEDS: NOREPINEPHRINE 4MG IN D5 250ML 4 MG in IV 1 EA IV SCH (18:35)
[2024-02-17] MEDS: ONDANSETRON 4MG 2ML VIAL IV PRN (21:17)
[2024-02-17] MEDS: MIDODRINE 5 MG TAB PO SCH (21:18)
[2024-02-18] VITALS (42 sets, daily range): BP systolic 92–121; BP diastolic 53–68; TEMP 97.6–98; O2SAT 95–98
[2024-02-18 06:05] LABS: BASO # 0.1 10^3/uL (0.0-0.2); BASO % 0.2 % (0.0-1.0); HEMATOCRIT 39.7 % (42.0-52.0); HEMOGLOBIN 13.3 g/dl (13.5-17.5); LYMPH # 0.8 10^3/uL (1.5-5.0); LYMPH % 3.6 % (24.0-44.0); MEAN CORPUSCULAR HEMOGLOBIN 32.3 pg (27.0-33.0); MEAN CORPUSCULAR HGB CONC 33.5 g/dl (32.0-36.5); MEAN CORPUSCULAR VOLUME 96.4 fl (80.0-96.0); MONO # 0.6 10^3/uL (0.0-0.8); MONO % 2.8 % (2.0-8.0); NEUTROPHILS % 92.8 % (36.0-66.0); PLATELET COUNT, AUTOMATED 124 10^3/uL (150-450); RED BLOOD COUNT 4.12 10^6/uL (4.30-6.10); WHITE BLOOD COUNT 22.6 10^3/uL (4.0-10.0)
[2024-02-18 06:26] LABS: ALBUMIN 2.7 G/DL (3.2-5.2); ALKALINE PHOSPHATASE 75 U/L (46-116); ALT/SGPT < 9 U/L (7.0-40); AST/SGOT 25 U/L (<34); BILIRUBIN,TOTAL 0.6 MG/DL (0.3-1.2); BLOOD UREA NITROGEN 63 MG/DL (9-23); CALCIUM LEVEL 8.5 MG/DL (8.3-10.6); CARBON DIOXIDE LEVEL 22 MMOL/L (20-31); CHLORIDE LEVEL 98 MMOL/L (98-107); CREATININE FOR GFR 2.88 MG/DL (0.70-1.30); GLOMERULAR FILTRATION RATE 22.4 (>35); GLUCOSE, FASTING 154 MG/DL (74-106); POTASSIUM SERUM 5.1 MMOL/L (3.5-5.1); SODIUM LEVEL 131 MMOL/L (136-145)
[2024-02-18] MEDS: HEPARIN SOD (PORCINE) 5000UNITS/ML 1ML VIAL/SYRINGE SQ SCH (08:42)
[2024-02-18] MEDS: cefTRIAXone SOD 1 GM in D5W MINI-BAG PLUS 50 ML IV SCH (08:42)
[2024-02-18] MEDS: PANTOPRAZOLE 40MG VIAL IV SCH (08:42)
[2024-02-18] MEDS: cefTRIAXone SOD 1 GM in D5W MINI-BAG PLUS 50 ML IV ONE (09:33)
[2024-02-18] MEDS ORDERED: ATROPINE SULFATE 1% OPHTH SOLN 2ML BTL SL PRN (14:45)
[2024-02-18] MEDS ORDERED: LORazepam 1 MG TAB PO PRN (14:45)
[2024-02-18] MEDS: ONDANSETRON 4MG ORAL DISINTEGRATING TAB PO PRN (15:17)
[2024-02-18] MEDS: SCOPOLAMINE 1MG TRANSDERMAL PATCH TOP SCH (16:42)
[2024-02-18] MEDS: MORPHINE 10MG/0.5ML ORAL CONCENTRATE SOLUTION U/D SL PRN (17:48)
[2024-02-18] MEDS: RAMELTEON 8 MG TAB (ROZEREM) PO ONE (21:43)
[2024-02-19] MEDS ORDERED: HYOS125TA PO (08:12)
[2024-02-19] MEDS ORDERED: ATIV1TAB10 PO (08:12)
[2024-02-19] MEDS ORDERED: MORP1SOL5 PO (08:12)
[2024-02-19] MEDS ORDERED: TRAN1DIS4 TOP (08:14)
[2024-02-19] MEDS ORDERED: MIDO5TA PO (08:14)
[2024-02-19] MEDS ORDERED: cefTRIAXone SOD 2 GM in D5W MINI-BAG PLUS 50 ML IV SCH (09:00)
[2024-02-19] MEDS ORDERED: ONDA-282 PO (10:20)
== END 2024-02-19 10:00 | disposition hospice, home (50) | DRG 432 ==
LOC: M ED 12:10 → M ED INP 17:12 → M MSPAV 21:19 → M PCU 02-16 18:38 → M ICU 02-17 18:01 → M MS5PR 02-18 15:06
PROVIDERS: ADMIT Hospitalist; ATTEND Student in an Organized Health Care Education/Training Program
PROC: 0W9G3ZX Drainage of Peritoneal Cavity, Percutaneous Approach, Diagnostic (ICD-10-PCS; principal; 2024-02-17 15:30)
DX: K74.60 Unspecified cirrhosis of liver (principal); K76.7 Hepatorenal syndrome; R18.8 Other ascites; E87.1 Hypo-osmolality and hyponatremia; E87.20 Acidosis, unspecified; K76.6 Portal hypertension; D68.9 Coagulation defect, unspecified; R57.9 Shock, unspecified; N17.9 Acute kidney failure, unspecified; E87.5 Hyperkalemia; Z51.5 Encounter for palliative care; Z66 Do not resuscitate; E11.9 Type 2 diabetes mellitus without complications; G20.A1 Parkinson's disease without dyskinesia, without mention of fluctuations; R62.7 Adult failure to thrive; N40.0 Benign prostatic hyperplasia without lower urinary tract symptoms; K29.70 Gastritis, unspecified, without bleeding; I10 Essential (primary) hypertension; E78.5 Hyperlipidemia, unspecified; K21.9 Gastro-esophageal reflux disease without esophagitis; R59.0 Localized enlarged lymph nodes; K57.90 Diverticulosis of intestine, part unspecified, without perforation or abscess without bleeding; D64.9 Anemia, unspecified; R53.81 Other malaise; R53.1 Weakness; D72.829 Elevated white blood cell count, unspecified; D69.6 Thrombocytopenia, unspecified; R11.2 Nausea with vomiting, unspecified; E87.70 Fluid overload, unspecified; K75.81 Nonalcoholic steatohepatitis (NASH); Z79.82 Long term (current) use of aspirin; Z79.899 Other long term (current) drug therapy; Z96.641 Presence of right artificial hip joint